=== PATIENT | female | born 2000 | race Two or more races ===

== ENCOUNTER 2020-03-18 10:00 | Emergency (ER) | payer OTHER, MEDICAID ==
[~2020-03-18] VITALS: Ht 152.4 cm; Wt 62.1 kg
[2020-03-18] MEDS ORDERED: IOHEXOL 300 MG/ML 100ML BOTTLE IJ ONE (10:47)
[2020-03-18] MEDS ORDERED: BACITRACIN TOP OINT 1 UD PKG TOP ONE (12:45)
[2020-03-18 13:01] VITALS: BP 106/70
== END 2020-03-18 14:15 | disposition home or self-care (01) ==
LOC: ER 10:00
DX: S70.01XA Contusion of right hip, initial encounter (principal); S00.211A Abrasion of right eyelid and periocular area, initial encounter; M62.838 Other muscle spasm; V89.2XXA Person injured in unspecified motor-vehicle accident, traffic, initial encounter; Y93.89 Activity, other specified; Y92.410 Unspecified street and highway as the place of occurrence of the external cause; Y99.8 Other external cause status
CPT/HCPCS: 70450; 71260; 72125; 73700; 74177; 99285; Q9967